=== PATIENT | female | born 1950 | race Caucasian/White ===

== ENCOUNTER → 2020-06-05 | Outpatient (CLI) | payer MEDICARE | END | disposition home or self-care (01) | LOC: CFH 10:14 | PROVIDERS: ATTEND Nurse Practitioner Family | DX: Z13.820 Encounter for screening for osteoporosis (principal); M85.80 Other specified disorders of bone density and structure, unspecified site; N95.8 Other specified menopausal and perimenopausal disorders | CPT/HCPCS: 77080 ==